=== PATIENT | male | born 1950 | race Caucasian/White ===

== ENCOUNTER 2019-07-01 11:07 | Inpatient (IN) ==
[2019-07-01] MEDS ORDERED: Ondansetron 4 MG/2 ML VIAL IVP PRN (13:53)
[2019-07-01] MEDS ORDERED: Naloxone 0.4 MG/ML INJ IVP PRN (13:53)
[2019-07-01] MEDS ORDERED: amLODIPine 5 MG TABLET PO SCH (13:56)
[2019-07-01 14:32] LABS: Basophils % 0.3 %; Eosinophils # 0.1 K/mcL (0.0-0.6); Eosinophils % 1.2 %; Hematocrit 39.2 % (37.5-50.1); Hemoglobin 13.5 g/dL (12.9-16.9); Immature Granulocytes % 0.2 % (0-4); Lymphocytes # 1.3 K/mcL (0.6-4.6); Lymphocytes % 21.5 %; Mean Corpuscular HGB Conc 34.4 g/dL (31.6-35.5); Mean Corpuscular Hemoglobin 30.5 pg (28.0-33.3); Mean Corpuscular Volume 88.5 fL (83.0-100.0); Mean Platelet Volume 10.5 fL (9.4-12.4); Monocytes # 0.4 K/mcL (0.0-1.3); Monocytes % 7.1 %; Neutrophils # 4.2 K/mcL (1.6-8.9); Platelet Count 105 K/mcL (140-400); Red Blood Count 4.43 M/mcL (4.19-5.50); Red Cell Distribution Width 12.8 % (11.5-14.5); Segmented Neutrophils % 69.7 %; White Blood Count 6.1 K/mcL (4.3-11.1)
[2019-07-01 14:42] LABS: INR 1.1; Prothrombin Time 12.7 Seconds (9.4-12.1)
[2019-07-01 14:44] LABS: Activated Partial Thrombo Time 32.8 Seconds (26.0-36.0)
[2019-07-01 14:54] LABS: Alanine Aminotransferase 11 Units/L (7-52); Albumin 3.7 g/dL (3.5-5.7); Albumin/Globulin Ratio 1.4 (1.1-2.2); Alkaline Phosphatase 94 Units/L (34-104); Aspartate Amino Transferase 18 Units/L (13-39); BUN/Creatinine Ratio 18 (6-26); Bilirubin,Total 1.1 mg/dL (0.3-1.0); Blood Urea Nitrogen 25 mg/dL (8-23); Calcium 9.4 mg/dL (8.6-10.3); Carbon Dioxide 25 mEq/L (23-29); Chloride 110 mEq/L (98-107); Chol/HDL Ratio 3.6 (0-4.9); Cholesterol 121 mg/dL (< 200); Globulin 2.6 g/dL (2.4-3.5); Glucose 131 mg/dL (70-105); HDL Cholesterol 34 mg/dL (40-59); LDL Cholesterol,Calculated 76 mg/dL (0-99); Magnesium 1.9 mg/dL (1.6-2.6); Osmolality,Calculated 296 (280-300); Phosphorous 2.5 mg/dL (2.7-4.5); Potassium 4.3 mEq/L (3.5-5.1); Sodium 140 mEq/L (136-145); Total Protein 6.3 g/dL (6.4-8.9); Triglycerides 54 mg/dL (< 150); Troponin I < 0.03 ng/mL (< 0.04); eGFR For African Americans > 60 (> 60); eGFR For Non-African Americans 52 (> 60)
[2019-07-01] MEDS ORDERED: 0.9 % Sodium Chloride 1,000 ML IVC SCH (16:00)
[2019-07-01 16:24] LABS: Adenovirus Not Detected (Not Detect); Coronavirus 229E Not Detected (Not Detect); Coronavirus HKU1 Not Detected (Not Detect); Coronavirus NL63 Not Detected (Not Detect); Coronavirus OC43 Not Detected (Not Detect); Human Metapneumovirus Not Detected (Not Detect); Human Rhinovirus/Enterovirus Not Detected (Not Detect); Influenza A Subtype 2009 H1 Not Detected (Not Detect); Influenza A Untypeable Not Detected (Not Detect); Influenza B Not Detected (Not Detect); Parainfluenza Virus 1 Not Detected (Not Detect); Parainfluenza Virus 2 Not Detected (Not Detect); Parainfluenza Virus 3 Not Detected (Not Detect); Parainfluenza Virus 4 Not Detected (Not Detect); Respiratory Syncytial Virus Not Detected (Not Detect)
[2019-07-01 16:25] LABS: Bordetella Pertussis Not Detected (Not Detect); Chlamydophila pneumoniae Not Detected (Not Detect); Mycoplasma pneumoniae Not Detected (Not Detect)
[2019-07-01] MEDS ORDERED: Perflutren Lipid Microsphere 1.3 ML in 0.9 % Sodium Chloride 8.7 ML IVP ONE (17:38)
[2019-07-01] MEDS ORDERED: *HR* Heparin 5,000 UNIT/ML VIAL SQ SCH (18:00)
[2019-07-01] MEDS: Apixaban 5 MG TABLET PO SCH (21:59)
[2019-07-02 04:36] LABS: Hemoglobin 12.7 g/dL (12.9-16.9); Mean Corpuscular Volume 91.6 fL (83.0-100.0)
[2019-07-02 04:38] LABS: Basophils % 0.3 %; Eosinophils # 0.1 K/mcL (0.0-0.6); Hematocrit 38.4 % (37.5-50.1); Immature Granulocytes % 0.3 % (0-4); Immature Platelets 3.3 % (1.1-6.1); Lymphocytes # 1.1 K/mcL (0.6-4.6); Lymphocytes % 18.6 %; Mean Corpuscular HGB Conc 33.1 g/dL (31.6-35.5); Mean Corpuscular Hemoglobin 30.3 pg (28.0-33.3); Mean Platelet Volume 10.6 fL (9.4-12.4); Monocytes # 0.5 K/mcL (0.0-1.3); Monocytes % 7.7 %; Red Blood Count 4.19 M/mcL (4.19-5.50); Red Cell Distribution Width 12.9 % (11.5-14.5); Segmented Neutrophils % 71.1 %; White Blood Count 6.1 K/mcL (4.3-11.1)
[2019-07-02 04:47] LABS: Neutrophils # 4.3 K/mcL (1.6-8.9); Platelet Count 95 K/mcL (140-400)
[2019-07-02 04:53] LABS: BUN/Creatinine Ratio 17 (6-26); Blood Urea Nitrogen 23 mg/dL (8-23); Calcium 8.8 mg/dL (8.6-10.3); Carbon Dioxide 24 mEq/L (23-29); Chloride 111 mEq/L (98-107); Glucose 120 mg/dL (70-105); Magnesium 1.9 mg/dL (1.6-2.6); Osmolality,Calculated 297 (280-300); Phosphorous 3.8 mg/dL (2.7-4.5); Potassium 4.2 mEq/L (3.5-5.1); Sodium 141 mEq/L (136-145); eGFR For African Americans > 60 (> 60); eGFR For Non-African Americans 51 (> 60)
[2019-07-02] MEDS: amLODIPine 5 MG TABLET PO SCH (08:13)
[2019-07-02] MEDS: Apixaban 5 MG TABLET PO SCH ×2 (08:13→21:11)
[2019-07-02] MEDS ORDERED: *HR* Dextrose 50 % in Water (Syg) 50 ML SYRINGE IVP PRN (08:32)
[2019-07-02] MEDS ORDERED: D5% in Water 1,000 ML IVC PRN (08:32)
[2019-07-02] MEDS ORDERED: Dextrose Gel 15 GM/37.5 ML TUBE PO PRN ×2 (08:32)
[2019-07-02] MEDS ORDERED: 0.9 % Sodium Chloride 1,000 ML IVC SCH (08:45)
[2019-07-02] MEDS ORDERED: E-Z-HD (BARIUM SULF) SUSPENSION PO ONE (11:06)
[2019-07-02] MEDS ORDERED: E-Z-PAQUE (BARIUM SULF) SUSP 1 BOTTLE PO ONE (11:06)
[2019-07-02] MEDS: Insulin DETEMIR 100 UNIT/ML X5UNITS SQ SCH ×2 (11:22→21:11)
[2019-07-02] MEDS: Insulin LISPRO 300 UNITS/3 ML VIAL SQ SCH ×2 (13:11→17:26)
[2019-07-02 15:22] LABS: Creatine Kinase 105 Units/L (30-223)
[2019-07-02 15:38] LABS: Bilirubin,Urine Negative (Negative); Blood,Urine Trace (Negative); Clarity,Urine Clear (Clear); Color,Urine Yellow (Yellow); Glucose,Urine (UA) Normal (Normal); Ketones,Urine Negative (Negative); Leukocyte Esterase,Urine Negative (Negative); Nitrite,Urine Negative (Negative); PH,Urine 6.5 pH Units (5.0-8.0); Protein,Urine 100 mg/dL (Neg-Trace); Specific Gravity,Urine 1.014 (1.010-1.025)
[2019-07-02 15:40] LABS: Bacteria,Urine None Seen per hpf (None-Few); Hyaline Casts,Urine None Seen per lpf (None-Few); Squamous Epithelial Cell,Urine Moderate per lpf (None-Few); WBC,Urine 0-3 per hpf (0-3)
[2019-07-03 01:11] LABS: BUN/Creatinine Ratio 15 (6-26); Blood Urea Nitrogen 19 mg/dL (8-23); Calcium 8.7 mg/dL (8.6-10.3); Carbon Dioxide 25 mEq/L (23-29); Chloride 111 mEq/L (98-107); Glucose 106 mg/dL (70-105); Magnesium 1.8 mg/dL (1.6-2.6); Osmolality,Calculated 287 (280-300); Phosphorous 3.4 mg/dL (2.7-4.5); Potassium 4.6 mEq/L (3.5-5.1); Sodium 137 mEq/L (136-145); Troponin I < 0.03 ng/mL (< 0.04); eGFR For African Americans > 60 (> 60); eGFR For Non-African Americans 56 (> 60)
[2019-07-03] MEDS: Insulin LISPRO 300 UNITS/3 ML VIAL SQ SCH ×3 (07:24→17:00)
[2019-07-03] MEDS: Apixaban 5 MG TABLET PO SCH ×3 (08:32→20:41)
[2019-07-03] MEDS: Insulin DETEMIR 100 UNIT/ML X5UNITS SQ SCH ×2 (08:56→20:40)
[2019-07-03] MEDS: amLODIPine 5 MG TABLET PO SCH (08:56)
[2019-07-03 11:11] LABS: Creatine Kinase 415 Units/L (30-223); Lactate Dehydrogenase 147 Units/L (140-271)
[2019-07-03] MEDS: *HR* HYDROcodone/Acet 5/325 mg TABLET PO PRN (17:36)
[2019-07-04 02:37] LABS: Calcium 8.8 mg/dL (8.6-10.3); Magnesium 1.9 mg/dL (1.6-2.6); Phosphorous 3.9 mg/dL (2.7-4.5); Potassium 4.4 mEq/L (3.5-5.1)
[2019-07-04] MEDS: Insulin LISPRO 300 UNITS/3 ML VIAL SQ SCH ×3 (07:13→16:31)
[2019-07-04] MEDS: *HR* HYDROcodone/Acet 5/325 mg TABLET PO PRN (07:23)
[2019-07-04] MEDS: Apixaban 5 MG TABLET PO SCH ×2 (07:24→19:54)
[2019-07-04] MEDS: Insulin DETEMIR 100 UNIT/ML X5UNITS SQ SCH ×2 (07:28→19:55)
[2019-07-04] MEDS: hydrALAZINE 25 MG TABLET PO SCH ×4 (08:09→23:51)
[2019-07-04] MEDS: Pyridostigmine Br 60 MG TABLET PO SCH ×3 (11:22→23:51)
[2019-07-05 02:36] LABS: Calcium 9.2 mg/dL (8.6-10.3); Magnesium 1.9 mg/dL (1.6-2.6); Phosphorous 3.2 mg/dL (2.7-4.5); Potassium 4.3 mEq/L (3.5-5.1)
[2019-07-05] MEDS: Ondansetron 4 MG/2 ML VIAL IVP PRN (06:29)
[2019-07-05] MEDS: Insulin LISPRO 300 UNITS/3 ML VIAL SQ SCH ×3 (07:29→17:00)
[2019-07-05] MEDS: Pyridostigmine Br 60 MG TABLET PO SCH ×2 (08:47→17:06)
[2019-07-05] MEDS: Insulin DETEMIR 100 UNIT/ML X5UNITS SQ SCH ×2 (08:48→20:52)
[2019-07-05] MEDS: Apixaban 5 MG TABLET PO SCH ×2 (08:48→20:45)
[2019-07-05] MEDS: hydrALAZINE 25 MG TABLET PO SCH ×2 (08:48→15:41)
[2019-07-05] MEDS: *HR* Promethazine 25 MG/ML VIAL IVP PRN (10:33)
[2019-07-05] MEDS ORDERED: hydrALAZINE 25 MG TABLET PO SCH (21:00)
[2019-07-06] MEDS: Pyridostigmine Br 60 MG TABLET PO SCH ×3 (00:23→17:48)
[2019-07-06 06:04] LABS: Calcium 8.6 mg/dL (8.6-10.3); Phosphorous 3.7 mg/dL (2.7-4.5); Potassium 4.4 mEq/L (3.5-5.1)
[2019-07-06] MEDS: Insulin LISPRO 300 UNITS/3 ML VIAL SQ SCH ×3 (07:23→17:39)
[2019-07-06] MEDS ORDERED: 0.9 % Sodium Chloride 1,000 ML IVC SCH (07:45)
[2019-07-06] MEDS: Apixaban 5 MG TABLET PO SCH ×2 (09:07→20:49)
[2019-07-06] MEDS: Ondansetron 4 MG/2 ML VIAL IVP PRN (12:43)
[2019-07-06] MEDS: *HR* HYDROcodone/Acet 5/325 mg TABLET PO PRN (12:43)
[2019-07-06] MEDS: *HR* Promethazine 25 MG/ML VIAL IVP PRN (15:07)
[2019-07-06 18:09] LABS: Potassium,Urine 39.8 mEq/L; Sodium, Urine 38.1 mEq/L
[2019-07-06] MEDS: Insulin DETEMIR 100 UNIT/ML X5UNITS SQ SCH (20:49)
[2019-07-07] MEDS: Pyridostigmine Br 60 MG TABLET PO SCH ×3 (00:14→18:10)
[2019-07-07 05:37] LABS: Basophils % 0.3 %; Eosinophils # 0.2 K/mcL (0.0-0.6); Hematocrit 35.4 % (37.5-50.1); Hemoglobin 11.8 g/dL (12.9-16.9); Immature Granulocytes % 0.3 % (0-4); Lymphocytes # 1.4 K/mcL (0.6-4.6); Mean Corpuscular HGB Conc 33.3 g/dL (31.6-35.5); Mean Corpuscular Hemoglobin 30.5 pg (28.0-33.3); Mean Corpuscular Volume 91.5 fL (83.0-100.0); Mean Platelet Volume 11.2 fL (9.4-12.4); Monocytes # 0.7 K/mcL (0.0-1.3); Monocytes % 11.2 %; Neutrophils # 3.7 K/mcL (1.6-8.9); Platelet Count 104 K/mcL (140-400); Red Blood Count 3.87 M/mcL (4.19-5.50); Red Cell Distribution Width 13.2 % (11.5-14.5); Segmented Neutrophils % 62.2 %
[2019-07-07 05:50] LABS: Calcium 8.6 mg/dL (8.6-10.3); Magnesium 2.1 mg/dL (1.6-2.6); Phosphorous 4.1 mg/dL (2.7-4.5); Potassium 4.2 mEq/L (3.5-5.1)
[2019-07-07] MEDS: Apixaban 5 MG TABLET PO SCH ×2 (08:31→20:47)
[2019-07-07] MEDS: Ondansetron 4 MG/2 ML VIAL IVP PRN ×2 (08:32→18:10)
[2019-07-07] MEDS: Insulin LISPRO 300 UNITS/3 ML VIAL SQ SCH ×3 (08:36→17:32)
[2019-07-07] MEDS: *HR* Promethazine 25 MG/ML VIAL IVP PRN (11:18)
[2019-07-07] MEDS: 0.9 % Sodium Chloride 1,000 ML IVC SCH (11:19)
[2019-07-07] MEDS: Aspirin Enteric Coated 81 MG Tablet PO SCH (18:10)
[2019-07-07] MEDS: Insulin DETEMIR 100 UNIT/ML X5UNITS SQ SCH (20:47)
[2019-07-08] MEDS: Pyridostigmine Br 60 MG TABLET PO SCH ×2 (00:33→08:19)
[2019-07-08 02:09] LABS: Calcium 8.5 mg/dL (8.6-10.3); Potassium 4.5 mEq/L (3.5-5.1)
[2019-07-08 07:24] VITALS: BP 131/70
[2019-07-08] MEDS: Insulin LISPRO 300 UNITS/3 ML VIAL SQ SCH (07:50)
[2019-07-08] MEDS: Aspirin Enteric Coated 81 MG Tablet PO SCH (08:19)
[2019-07-08] MEDS: *HR* Promethazine 25 MG/ML VIAL IVP PRN (08:19)
[2019-07-08] MEDS: Apixaban 5 MG TABLET PO SCH (08:19)
[2019-07-08] MEDS ORDERED: Loratadine 10 MG TABLET PO SCH (09:00)
[2019-07-08] MEDS: 0.9 % Sodium Chloride 1,000 ML IVC SCH (11:48)
== END 2019-07-08 12:11 | DRG 57 ==
LOC: 3BNU → SUATTDRO 07-02 14:06
PROVIDERS: ADMIT Internal Medicine; ATTEND Family Medicine